=== PATIENT | male | born 1960 | race Caucasian/White ===

== ENCOUNTER → 2017-10-27 10:52 | Outpatient (CLI) | payer OTHER, MEDICAID, SELFPAY ==
--- NOTE | 2017-10-27 | DI.US.S_ITS ---
PROCEDURE: US ABDOMEN LIMITED INDICATIONS: CHRONIC HEPATITIS C WITHOUT HEPATIC COMA TECHNIQUE: Real-time focused scanning was performed of the abdomen, with image documentation. COMPARISON: [facility], MR, ABDOMEN W&WO CONTRAST, 06/05/2016, 17:03. FINDINGS: Liver is diffusely increased in echogenicity. No focal hepatic abnormalities identified. Normal hepatic size. IMPRESSION: Increased hepatic echogenicity noted possibly related to hepatic steatosis but other sources of hepatocellular disease cannot be excluded. Recommend clinical correlation. Dictated by: Darius RODNEY Interpreted: Hermila Hastings MD on 10/27/2017 at 13:03 Approved by: Hermila Hastings M.D. on 10/27/2017 at 15:05
== END ==
PROVIDERS: Family Provider Family Medicine; PCP Family Medicine; Visit Provider Internal Medicine Gastroenterology
DX: B18.2 Chronic viral hepatitis C (principal)
CPT/HCPCS: 76705

== ENCOUNTER 2017-11-21 12:46 | Emergency (ER) | payer OTHER, MEDICAID, SELFPAY ==
[2017-11-21 12:48] VITALS: BP 161/92; PULSE 69; RESP 17; TEMP 36.5; O2SAT 99; BMI 36.9
--- NOTE | 2017-11-21 12:51 | DI.RAD.S_ITS ---
PROCEDURE: XR CHEST 1V INDICATIONS: chest pain TECHNIQUE: One view of the chest was acquired. COMPARISON: [facility], , CHEST 2 VIEW, 10/29/2016, 9:49. FINDINGS: Surgical changes and devices: Median sternotomy. Lungs and pleura: No pleural effusions or pneumothorax. Lungs are clear. Mediastinum: Mediastinal contours appear normal. Heart size is normal. Bones and chest wall: No suspicious bony lesions. Overlying soft tissues appear unremarkable. IMPRESSION: No acute process. Dictated by: Candy Garcia M.D. on 11/21/2017 at 13:47 Approved by: Candy Garcia M.D. on 11/21/2017 at 13:47
[2017-11-21 13:19] LABS: Add Manual Diff / Slide Review NO; Basophils Percent Auto 0.1 % (0-2); Eosinophils Percent Auto 3.2 % (2-4); Hematocrit 44.7 % (41-53); Lymphocytes Percent Auto 14.5 % (25-40); Mean Corpuscular HGB Conc 35.8 % (30-36); Mean Corpuscular Volume 94.9 fL (80-100); Monocytes Percent Auto 8.7 % (3-14); Neutrophils Absolute Auto 7700 /uL (3000-5900); Neutrophils Percent Auto 73.5 % (50-75); Platelet Count 191 X10^3/uL (150-400); Red Blood Cell Count 4.72 X10^6/uL (4.5-5.9); Red Cell Distribution Width 13.3 % (11.6-14.8); White Blood Cell Count 10.5 X10^3/uL (4.5-11.0)
[2017-11-21 13:30] VITALS: BP 113/81; PULSE 67; RESP 24; O2SAT 95
[2017-11-21 13:44] LABS: Troponin I 0.107 ng/mL (0.01-0.034)
[2017-11-21] MEDS: ASPIRIN 81 MG TAB 324 MG PO (13:53)
[2017-11-21] MEDS: SODIUM CHLORIDE 0.9% 1,000 ML 150 ML IV (13:54)
[2017-11-21 14:30] VITALS: BP 109/68; PULSE 66; RESP 13; O2SAT 98
[2017-11-21 14:31] LABS: Alanine Aminotransferase 22 IU/L (21-72); Albumin 4.2 g/dL (3.5-5.0); Albumin Globulin Ratio 1.2 (1.0-2.8); Alkaline Phosphatase 68 U/L (38-126); Aspartate Aminotransferase 22 IU/L (17-59); BUN Creatinine Ratio 15.6 (6-22); Bilirubin Total 0.8 mg/dL (0.2-1.3); Blood Urea Nitrogen 14 mg/dL (9-20); Calcium 9.5 mg/dL (8.4-10.2); Carbon Dioxide 22 mmol/L (22-32); Chloride 104 mmol/L (98-107); Creatine Kinase 61 U/L (55-170); Estimated Glomerular Filt Rate > 60.0 mL/min (>60); Globulin 3.5 g/dL (1.7-4.1); Glucose 143 mg/dL (70-100); HEMOLYSIS < 15 (0-50); Potassium 4.2 mmol/L (3.4-5.1); Sodium 138 mmol/L (137-145); Total Protein 7.7 g/dL (6.3-8.2)
[2017-11-21 14:55] LABS: Lipase 662 U/L (23-300)
--- NOTE | 2017-11-21 15:39 | ED_ITS ---
HPI - Chest Pain General Chief Complaint: Chest Pain Stated Complaint: CHEST PAIN History of Present Illness HPI narrative: HPI 57-year-old obese male smoker with CAD (CABG two-vessel 2014, stent ?2 2012, stent ?3 2006) presents complaining of intermittent waxing and waning nitroglycerin responsive chest pain over the last 2-3 days is without clear provoking or relieving factors. Patient has not had similar symptoms for an extended period of time (months to years). Currently denies chest pain, shortness breath, or further symptoms. Patient takes multiple cardiac medications, unsure of names. Patient denies recent immobilization, leg trauma, estrogen use, surgery in the last four weeks, hemoptysis, or malignancy in the last 6 months. Associate Professor Of Archaeology Dr. Moyer. M/S/F/SocHx notable for: please see HPI; remainder reviewed with patient and in chart. ROS: Negative constitutional, eye, cardiovascular, pulmonary, GI, , MSK, skin , neurologic, psychiatric, endocrine unless noted in the HPI. Exam HR 67, BP 113/81, RR 24, SaO2 95% on room air; at 13:30. Gen: Pleasant, non-toxic appearing, resting comfortably. HEENT: NC, AT, PEERL, EOMI. Resp: diffuse extra wheezing throughout all lung edwards, normal work of breathing, otherwise clear to auscultation bilaterally. Card: RRR with no M/R/G, no crackles in lung bases, no pedal edema, no JVD appreciated. GI: NT/ND Vascular: Both ankles, calves, and thighs of equal size, no calf tenderness to palpation bilaterally. MSK: No chest wall TTP. No visible deformities, strength and tone WNL. Skin: Normal color with no visible lesions. Neuro: AO x 3, no facial asymmetry, vision and hearing WNL. Psych: Mood and affect appropriate. Labs / Imaging (pertinent): WBC 10.5, Hb 16.0, Na 138, K 4.2. Troponin 0.107 EKG (5:49 PM): SR 71 bpm, approximately 0.[address] elevation in lead III, nonspecific elevation in lead aVF, nonspecific elevation in lead II, 0.[address] depression V2 and V3. EKG (3:20 PM): SR 60 bpm, approximately 0.[address] elevation in lead III, nonspecific elevation in lead aVF, nonspecific elevation in lead II, 0.[address] depression V2, nonspecific depression in V3. CXR: No acute cardiopulmonary disease process. MDM Previous chart, nursing note, and vitals reviewed. A: 57-year-old obese male smoker with CAD (CABG two-vessel 2014, stent ?2 2012, stent ?3 2006) presents complaining of intermittent waxing and waning nitroglycerin responsive chest pain over the last 2-3 days is without clear provoking or relieving factors. DDx and Evaluation: * ACS -PATIENT WITH TROPONIN ELEVATION AND ECG CHANGES, SUSPECT NSTEMI. ASPIRIN GIVEN. * UA - HISTORY CONSISTENT WITH WORSENING UNSTABLE ANGINA. * Pericarditis - consider pericarditis unlikely given the lack of RI segment depressions as well as the absence of diffuse ST-segment elevations, lack of reduction of pain when supine, and lack of a friction rub. * Myocarditis - unlikely given the negative troponin and an EKG without characteristic RI-segment or ST-segment changes. * Dissection - dissection is unlikely given symptoms, and lack of mediastinal widening. * PE - low clinical suspicion given history and alternate diagnosis, further risk stratification (e.g.) Well's not indicated. * Mediastinal Air - no evidence by CXR or auscultation. * Pneumothorax - no evidence by CXR or physical exam. * MSK - doubt given lack of reproducibility on exam. * Endocarditis - no identifiable risk factors, patient afebrile, no new murmurs appreciated on exam; doubt. * GI (Esophageal rupture, GERD) - esophageal rupture effectively excluded given the lack of mediastinal widening, non-toxic appearance, and lack of identifiable risk factors. While not definitively excluded, further evaluation of GERD is deferred to an outpatient setting. ED Course: Vital signs remained stable and within clinically acceptable limits. Disposition: discussed patient with organizational development manager, Dr. Osuna, at [facility], recommend admission to hospitalist service. Patient accepted by Dr. Garza. Impression: NSTEMI (please reference below for remainder of encounter information) Critical Care Time Organ system(s): Cardiopulmonary Intervention: Assessment of the patient, interpretation of studies, communication related to patient care. Time: 30 minutes were spent directly related to patient care exclusive of separately billed procedures. Related Data Allergies Allergy/AdvReac Type Severity Reaction Status Date / Time No Known Drug Allergies Allergy Verified 11/21/17 12:48 [facility] Social History Smoking Status: Current every day smoker Exam Initial Vital Signs Initial Vital Signs: Vital Signs Temperature 97.7 F 11/21/17 12:48 Pulse Rate 69 11/21/17 12:48 Respiratory Rate 17 11/21/17 12:48 Blood Pressure 161/92 H 11/21/17 12:48 Pulse Oximetry 99 11/21/17 12:48 Course Orders Ordered: ED Orders 11/21/17 12:51 XR chest 1V Stat EKG-12 Lead Stat 11/21/17 13:05 Complete Blood Count AUTO DIFF Stat 11/21/17 14:12 Comprehensive Metabolic Panel Stat Lipase Stat Troponin & CK Cardiac Panel Stat Sodium Chloride (Normal Saline 0.9%) 1,000 mls @ 150 mls/hr IV CONT BETINA Last Admin: 11/21/17 13:54 Dose: 150 mls/hr Discontinued Medications Aspirin (Aspirin Chew) 324 mg PO NOW ONE Stop: 11/21/17 12:52 Last Admin: 11/21/17 13:53 Dose: 324 mg Vital Signs - 8 hr 11/21/17 12:48 11/21/17 13:30 11/21/17 14:30 Temperature 97.7 F Pulse Rate 69 67 66 Respiratory Rate 17 24 13 Blood Pressure 161/92 H Blood Pressure [Right Arm] 113/81 H 109/68 Pulse Oximetry 99 95 98 MDM - Chest Pain Lab Data Result diagrams: 11/21/17 13:05 11/21/17 14:12 Lab Results 11/21/17 11/21/17 Range/Units 13:05 14:12 WBC 10.5 (4.5-11.0) X10^3/uL RBC 4.72 (4.5-5.9) X10^6/uL Hgb 16.0 (13.5-17.5) g/dL Hct 44.7 (41-53) % MCV 94.9 (80-100) fL MCH 34.0 (26-34) PG MCHC 35.8 (30-36) % RDW 13.3 (11.6-14.8) % Plt Count 191 (150-400) X10^3/uL Neut % (Auto) 73.5 (50-75) % Lymph % (Auto) 14.5 L (25-40) % [place] % (Auto) 8.7 (3-14) % Eos % (Auto) 3.2 (2-4) % Baso % (Auto) 0.1 (0-2) % Neut # (Auto) 7700 H (0688-3295) /uL Sodium 138 (137-145) mmol/L Potassium 4.2 (3.4-5.1) mmol/L Chloride 104 (98-107) mmol/L Carbon Dioxide 22 (22-32) mmol/L BUN 14 (9-20) mg/dL Creatinine 0.90 (0.66-1.25) mg/dL Estimated GFR > 60.0 (>60) mL/min BUN/Creatinine Ratio 15.6 (6-22) Glucose 143 H (70-100) mg/dL Calcium 9.5 (8.4-10.2) mg/dL Total Bilirubin 0.8 (0.2-1.3) mg/dL AST 22 (17-59) IU/L ALT 22 (21-72) IU/L Alkaline Phosphatase 68 (38-126) U/L Total Creatine Kinase 61 (55-170) U/L Troponin I 0.107 H (0.01-0.034) ng/mL Total Protein 7.7 (6.3-8.2) g/dL Albumin 4.2 (3.5-5.0) g/dL Globulin 3.5 (1.7-4.1) g/dL Albumin/Globulin Ratio 1.2 (1.0-2.8) Lipase 662 H (23-300) U/L
[2017-11-21 16:35] VITALS: BP 124/74; PULSE 72; RESP 18; O2SAT 97
[2017-11-21 17:34] LABS: Bacteria Urine None Seen
[2017-11-21 17:36] VITALS: BP 136/84; PULSE 68; RESP 20; O2SAT 96
[2017-11-21 17:43] LABS: Troponin I 0.179 ng/mL (0.01-0.034)
[2017-11-21 17:57] LABS: RBC Urine 0-1/HPF (0-5/HPF); WBC Urine 0-1/HPF (0-5/HPF)
[2017-11-21 17:58] LABS: Mucus Urine 2+ (Negative)
== END 2017-11-21 17:30 | disposition short-term general hospital (02) ==
PROVIDERS: Emergency Provider Emergency Medicine; PCP Family Medicine
DX: I21.4 Non-ST elevation (NSTEMI) myocardial infarction (principal)
CPT/HCPCS: 36415; 36591; 71045; 80053; 81003; 81015; 82550; 82553; 83690; 84484; 85025; 93005; 93010; 96360; 96361; 99283; 99285

== ENCOUNTER → 2018-04-02 14:07 | Outpatient (CLI) | payer OTHER, MEDICAID, SELFPAY ==
--- NOTE | 2018-04-02 | DI.MRI.S_ITS ---
PROCEDURE: MR ANKLE RT WO CON INDICATIONS: Right ankle pain in whole joint TECHNIQUE: Noncontrast sagittal T1 spin echo and T2 fast spin echo with fat saturation, axial proton density fast spin echo and T2 fast spin echo with fat saturation, coronal T1 spin echo and T2 fast spin echo with fat saturation through the ankle/hindfoot. COMPARISON: None. FINDINGS: Image quality: Excellent. Bones and joints: Severe tibiotalar joint osteophyte is is seen with complete loss of joint space, extensive subchondral sclerosis, cyst formation and edema. Prominent anterior dorsal margin osteophyte formation is also seen. Edema involving weight-bearing portion of talar dome is also noted, a small osteochondral lesion cannot be excluded. There is suggestion of intraosseous osteonecrosis involving distal tibial shaft. Mild to moderate osteoarthritic changes throughout subtalar joint, midfoot and hindfoot joints are also seen. No acute fracture or dislocation. Medial structures: The posterior tibialis, flexor digitorum longus, and flexor hallucis longus tendons are intact. The posterior tibial neurovascular bundle appears normal within the tarsal tunnel, without extrinsic mass effect. The deep layer (anterior and posterior tibiotalar ligaments) and superficial layer (tibionavicular, tibiospring, and tibiocalcaneal ligaments) of the deltoid ligament appear normal. The spring ligament components (superomedial calcaneonavicular, medioplantar oblique calcaneonavicular, and inferoplantar longitudinal ligaments) are intact. Lateral structures: The anterior talofibular, calcaneofibular, and posterior talofibular ligaments appear intact. More superiorly, the anterior and posterior tibiofibular ligaments appear thickened with heterogeneous internal fluid signal suggestive of sprain and low to moderate grade intrasubstance partial-thickness tear. The tibiofibular syndesmosis is normal in width at 2 mm or less. The peroneus longus and brevis tendons demonstrate normal location and morphology. Adjacent bony peroneal tubercle and retrotrochlear prominence are normal in size. The sinus tarsi demonstrates normal fatty signal, without edema, fibrosis, or cyst formation. Visualized sinus tarsi components (cervical ligament, interosseous talocalcaneal ligament, roots of the inferior extensor retinaculum) appear normal. The calcaneonavicular and calcaneocuboid components of the bifurcate ligament appear intact. The dorsal calcaneocuboid ligament appears intact. Anterior structures: The tibialis anterior, extensor hallucis longus, and extensor digitorum longus tendons appear intact. The dorsal talonavicular ligament appears intact. Posterior and plantar structures: Achilles tendon is intact. Medial and lateral bands of the plantar fascia are of normal thickness. No abductor digiti quinti muscle atrophy to suggest Chairez neuropathy. IMPRESSION: 1. Severe tibiotalar joint osteoarthritis as described above. Cannot rule out small osteochondral lesion in the weight-bearing portion of talar dome. Prominent anterior and marginal osteophyte formation. Small focal area of osteonecrosis involving distal tibia shaft medullary space. Mild to moderate osteophytic changes in rest of the ankle, hindfoot and midfoot joints. No fracture or dislocation. 2. Suggestion of sprain and low to moderate grade intrasubstance partial-thickness tear involving anterior and possibly posterior tibiofibular ligaments. Other medial and lateral ankle ligaments are grossly intact. Ankle tendons are grossly intact. Dictated by: Ottoniel Kamara M.D. on 04/02/2018 at 16:21 Approved by: Ottoniel Kamara M.D. on 04/02/2018 at 16:30
== END ==
PROVIDERS: PCP Family Medicine; Visit Provider Family Medicine
DX: M79.606 Pain in leg, unspecified (principal)
CPT/HCPCS: 73721

== ENCOUNTER → 2018-05-26 11:01 | Outpatient (CLI) | payer OTHER, MEDICAID, SELFPAY ==
--- NOTE | 2018-05-26 | DI.US.S_ITS ---
PROCEDURE: US ABDOMEN LIMITED INDICATIONS: CIRRHOSIS TECHNIQUE: Real-time focused scanning was performed of the abdomen, with image documentation. COMPARISON: [facility], US, US ABDOMEN LIMITED, 10/27/2017, 11:13. [facility], US, ABDOMEN LIMITED, 12/23/2016, 11:02. FINDINGS: The hepatic margin is nodular, no hepatic mass lesion is seen. IMPRESSION: Limited study at clinician request, no sign of interval development of ascites or varices adjacent to the liver in this patient with imaging findings suggestive of underlying cirrhosis. No mass lesion found. Dictated by: Noel Vann M.D. on 05/26/2018 at 14:03 Approved by: Noel Vann M.D. on 05/26/2018 at 14:04
== END ==
PROVIDERS: PCP Family Medicine; Visit Provider Internal Medicine Gastroenterology
DX: K74.60 Unspecified cirrhosis of liver (principal)
CPT/HCPCS: 76705

== ENCOUNTER → 2019-01-10 08:28 | Outpatient (CLI) | payer MEDICARE, MEDICAID, SELFPAY ==
--- NOTE | 2019-01-10 | DI.US.S_ITS ---
PROCEDURE: US ABDOMEN LIMITED INDICATIONS: HEP C TECHNIQUE: Real-time focused scanning was performed of the abdomen, with image documentation. COMPARISON: [facility], MR, ABDOMEN W&WO CONTRAST, 06/05/2016, 17:03. [facility], US, US ABDOMEN LIMITED, 05/26/2018, 11:14. FINDINGS: No findings of gallstones or sludge are seen. The gallbladder wall is thickened, measuring 5 mm. No specific pericholecystic fluid is seen. The sonographic Marie sign is negative. The liver demonstrates normal size. The liver demonstrates generalized increased mildly echogenicity. This decreases ultrasound sensitivity for detection of hepatic masses. There is no biliary dilatation, the common bile duct measures 4 mm. The pancreas is not well-seen. The right kidney is unremarkable. IMPRESSION: The liver demonstrates increased echogenicity. This finding is nonspecific, yet differential diagnoses include cirrhosis and fatty infiltration. No focal liver lesions are seen. If there is strong clinical concern for a liver mass, then please consider a followup dedicated liver protocol MRI (without and with contrast) for further evaluation (assuming that there is no contraindication). Gallbladder wall thickening, without additional sonographic signs of cholecystitis. Dictated by: Kamaljit Nicole M.D. on 01/10/2019 at 11:59 Approved by: Kamaljit Nicole M.D. on 01/10/2019 at 12:02
== END ==
PROVIDERS: PCP Family Medicine; Visit Provider Internal Medicine Gastroenterology
DX: R76.8 Other specified abnormal immunological findings in serum (principal)
CPT/HCPCS: 76705

== ENCOUNTER 2019-05-05 15:27 | Observation (INO) | payer MEDICARE, MEDICAID, SELFPAY ==
[2019-05-05] VITALS (10 sets, daily range): BP systolic 98–152; BP diastolic 54–76; PULSE 59–65; RESP 16–26; TEMP 36.3–36.6; O2SAT 96–100; BMI 37.5
--- NOTE | 2019-05-05 15:38 | DI.RAD.S_ITS ---
PROCEDURE: XR CHEST 1V INDICATIONS: chest pain TECHNIQUE: One view of the chest was acquired. COMPARISON: [facility], , XR CHEST 1V, 11/21/2017, 13:32. [facility], CR, CHEST 2 VIEW, 10/29/2016, 9:49. FINDINGS: Surgical changes and devices: Sternotomy wires, presumed prior CABG. Lungs and pleura: Lungs are clear. No pleural effusions or pneumothorax. Mediastinum: Mediastinal contours appear normal. Heart size is normal. Bones and chest wall: No suspicious bony lesions. Overlying soft tissues appear unremarkable. IMPRESSION: Prior CABG, no source of chest pain seen. Dictated by: Noel Vann M.D. on 05/05/2019 at 16:02 Approved by: Noel Vann M.D. on 05/05/2019 at 16:02
[2019-05-05 16:16] LABS: Add Manual Diff / Slide Review NO; Basophils Absolute Auto 100 /uL (0-100); Basophils Percent Auto 1.1 % (0-2); Eosinophils Absolute Auto 300 /uL (0-450); Hematocrit 37.8 % (41-53); Hemoglobin 13.4 g/dL (13.5-17.5); Lymphocytes Absolute Auto 1200 /uL (1100-4500); Lymphocytes Percent Auto 17.4 % (25-40); Mean Corpuscular HGB Conc 35.4 % (30-36); Mean Corpuscular Hemoglobin 33.9 PG (26-34); Mean Corpuscular Volume 95.7 fL (80-100); Monocytes Absolute Auto 700 /uL (0-900); Monocytes Percent Auto 9.6 % (3-14); Neutrophils Absolute Auto 4700 /uL (1500-7000); Neutrophils Percent Auto 67.9 % (50-75); Platelet Count 163 X10^3/uL (150-400); Red Blood Cell Count 3.95 X10^6/uL (4.5-5.9); Red Cell Distribution Width 13.3 % (11.6-14.8)
[2019-05-05 16:18] LABS: INR 1.1 (0.9-1.3); Prothrombin Time 12.4 SECONDS (10.1-12.7)
[2019-05-05 16:21] LABS: PTT Partial Thromboplastin Tim 31 SECONDS (26.4-36.2)
[2019-05-05 16:23] LABS: Alanine Aminotransferase 13 IU/L (<50); Albumin 4.3 g/dL (3.5-5.0); Albumin Globulin Ratio 1.2 (1.0-2.8); Alkaline Phosphatase 54 U/L (38-126); Aspartate Aminotransferase 20 IU/L (17-59); Bilirubin Total 0.5 mg/dL (0.2-1.3); Blood Urea Nitrogen 17 mg/dL (9-20); Calcium 9.5 mg/dL (8.4-10.2); Carbon Dioxide 23 mmol/L (22-32); Chloride 104 mmol/L (98-107); Creatine Kinase 50 U/L (55-170); Estimated Glomerular Filt Rate > 60.0 mL/min (>60); Globulin 3.7 g/dL (1.7-4.1); Glucose 130 mg/dL (70-100); HEMOLYSIS 20 (0-50); Lipase 40 U/L (23-300); Potassium 4.3 mmol/L (3.4-5.1); Sodium 137 mmol/L (137-145)
[2019-05-05 16:34] LABS: Troponin I < 0.012 ng/mL (0.01-0.034)
--- NOTE | 2019-05-05 18:03 | ED.CHESTPAIN ---
HPI - Chest Pain General Chief Complaint: Chest Pain Stated Complaint: severe chest pain last couple of days Time Seen by Provider: 05/05/19 18:03 Source: patient and family Mode of arrival: Ambulatory Limitations: no limitations History of Present Illness HPI narrative: This is a 59-year-old male who comes to the emergency department with complaint of chest pain that occurred on Thursday, 2 days prior. Patient states he was just pattern around the house. He states he had sort of epigastric low chest pain that was centralized did not radiate. He felt very sweaty he got nauseated felt lightheaded and a little bit short of breath. He took 3 nitro sublingual and his chest pain resolved over about 5-10 minutes. He states occasionally he has little twinges in his chest but these have been going on for several years. Since then he has occasionally had a little tightness or felt a little fatigued. He has not had any swelling. He has had a history of 5 cardiac stents total, his most recent catheterization was in 2009 when he was transferred from [facility] for an NSTEMI and he states that they cleaned out his arteries but did not place any new stents. Patient has not had any catheterization since that time. He did have an echo 3 months ago. He states that he was told his EF improved about 10% to 55%. He has not had any new medication changes. He takes Plavix daily but does not take aspirin. He has diabetes, hypertension, dyslipidemia and is on ProAir. He takes Januvia, pioglitazone, metformin, enalapril, metoprolol, last is all and isosorbide daily. Patient did contact his Cardiology office today and they asked that patient come to the ER for evaluation. Dr. Fung is his parts interpreter. Related Data Home Medications Medication Instructions Recorded Confirmed albuterol sulfate [ProAir HFA] 1 puff INHALATION BID 05/05/19 05/05/19 cilostazol 50 mg PO BID 05/05/19 05/05/19 clopidogrel 75 mg PO DAILY 05/05/19 05/05/19 enalapril maleate 2.5 mg PO BID 05/05/19 05/05/19 hydrocodone-acetaminophen 1 tab PO Q6-8H PRN 05/05/19 05/05/19 isosorbide mononitrate 30 mg PO DAILY 05/05/19 05/05/19 magnesium oxide 400 mg PO BID 05/05/19 metoprolol succinate 50 mg PO BID 05/05/19 pioglitazone 30 mg PO DAILY 05/05/19 rosuvastatin 10 mg PO DAILY 05/05/19 05/05/19 sitagliptin [Januvia] 100 mg PO DAILY 05/05/19 05/05/19 Allergies Allergy/AdvReac Type Severity Reaction Status Date / Time No Known Drug Allergies Allergy Verified 05/05/19 15:40 Review of Systems Review of Systems ROS Unobtainable: All systems reviewed & are unremarkable except as noted in HPI and below Patient History Medical History (Updated 05/05/19 @ 18:41 by Bren Gonzáles DO) Current smoker (Acute) Diabetes (Acute) Dyslipidemia (Acute) Hypertension (Acute) Surgical History (Updated 05/05/19 @ 22:52 by SHANTELLE Sibley) H/O heart artery stent (Acute) History of ankle surgery (Acute) History of colonoscopy (Acute) History of coronary artery bypass graft (Acute) Family History (Updated 05/05/19 @ 22:44 by SHANTELLE Sibley) Father Heart disease Myocardial infarction Mother Heart disease Brother Diabetes mellitus Social History household members: significant other Smoking Status: Current every day smoker alcohol intake: never Smoking Status: Current every day smoker tobacco type: cigarettes alcohol intake frequency: holidays/special occasions only Substance Use Type: does not use Exam Narrative Exam Narrative: GENERAL: Alert and oriented x three, obese, well-appearing male in mild distress. HEENT: Head normocephalic, atraumatic, EOMI, pupils reactive, face symmetric, moist mucous membranes NECK: Supple, full range of motion CARDIOVASCULAR: Regular rate and rhythm without murmurs, rubs or gallops. RESPIRATORY: Breath sounds equal bilaterally, no wheezes rales or rhonchi. ABDOMEN: Soft, nontender. Normoactive bowel sounds all 4 quadrants. No guarding or rebound, rigidity, no mass : No CVA tenderness EXTREMITIES: Normal range of motion, no clubbing or edema. Neurovascularly intact NEUROLOGICAL: Cranial nerves II through XII grossly intact. Moving all extremities SKIN: Warm, dry, no petechiae, no rashes or lesions. Initial Vital Signs Initial Vital Signs: Vital Signs Temperature 98 F 05/05/19 15:38 Pulse Rate 64 05/05/19 15:38 Respiratory Rate 18 05/05/19 15:38 Blood Pressure 148/71 H 05/05/19 15:38 Pulse Oximetry 100 05/05/19 15:38 Course Orders Ordered: ED Orders 05/05/19 20:55 EC echo doppler complete Urgent 05/06/19 05:05 Basic Metabolic Panel Routine Complete Blood Count AUTO DIFF Routine Troponin I Routine Acetaminophen (Tylenol) 650 mg PO Q6HR PRN PRN Reason: Fever/Mild Pain (1-3) Hydrocodone Bitart/Acetaminophen ([place] 5/325) 1 tab PO Q6HR PRN PRN Reason: Pain, Moderate (4-6) Albuterol (Ventolin Hfa) 2 puff INH RTQ4HR PRN PRN Reason: Shortness Of Breath Or Wheezing Albuterol (Ventolin) 2.5 mg INH [id number] PRN PRN Reason: Shortness Of Breath Or Wheezing Albuterol/Ipratropium (Duoneb) 3 ml INH RTBID PRN PRN Reason: Shortness Of Breath Or Wheezing Bisacodyl (Dulcolax) 10 mg PO DAILY PRN PRN Reason: Constipation Cilostazol (Pletal) 50 mg PO BID [facility] Clopidogrel Bisulfate (Plavix) 75 mg PO DAILY [facility] Dextrose (D50w) 25 gm IV PRN PRN; Protocol PRN Reason: Hypoglycemia Docusate Sodium (Colace) 100 mg PO BID PRN PRN Reason: Constipation Enalapril Maleate (Vasotec) 2.5 mg PO BID [facility] Last Admin: 05/06/19 00:31 Dose: 2.5 mg Documented by: BALDEMARUSH Heparin Sodium (Porcine) (Heparin) 5,000 unit SUBCUT BID [facility] Last Admin: 05/05/19 22:23 Dose: 5,000 unit Documented by: [email or web address] Sodium Chloride (Normal Saline 0.9%) 1,000 mls @ 100 mls/hr IV CONT [facility] Last Admin: 05/05/19 22:15 Dose: 100 mls/hr Documented by: [email or web address] Insulin Aspart (Novolog Flexpen) 0 unit SUBCUT ACHS [facility]; Protocol Isosorbide Mononitrate (Imdur) 30 mg PO DAILY [facility] Metoprolol Succinate (Toprol Xl) 50 mg PO BID [facility] Last Admin: 05/05/19 22:53 Dose: 50 mg Documented by: ALEJANDRO Morphine Sulfate (Morphine) 2 mg IV Q5MIN PRN PRN Reason: Chest Pain Naloxone HCl (Narcan) 0.2 mg IV Q2MIN PRN PRN Reason: Opiate Reversal Nitroglycerin (Nitrostat) 0.4 mg SL [id number] PRN PRN Reason: Chest Pain Rosuvastatin Calcium (Crestor) 10 mg PO DAILY [facility] Sitagliptin Phosphate (Januvia) 100 mg PO DAILY [facility] Discontinued Medications Influenza Virus Vaccine (Flu Vaccine) 0.5 ml IM .ONCE ONE Stop: 05/05/19 22:30 Last Admin: 05/06/19 00:31 Dose: 0.5 ml Documented by: KEHINDE Nicotine (Nicoderm) 21 mg TOP NOW ONE Stop: 05/05/19 19:56 Last Admin: 05/05/19 22:24 Dose: 21 mg Documented by: HWERENETTA Nicotine (Nicoderm) 21 mg TOP DAILY [facility] Non-Formulary Medication (Hydrocodone-Acetaminophen) 1 tab PO Q6HR [facility] Vital Signs Vital signs: Vital Signs - 8 hr 05/05/19 15:38 05/05/19 16:00 05/05/19 17:14 Temperature 98 F Pulse Rate 64 63 63 Respiratory Rate 18 18 22 Blood Pressure 148/71 H Blood Pressure [Left Arm] 120/60 101/59 L Pulse Oximetry 100 98 96 05/05/19 17:15 Temperature Pulse Rate 62 Respiratory Rate 22 Blood Pressure Blood Pressure [Left Arm] 98/61 Pulse Oximetry 96 MDM - Chest Pain Lab Data Attestation: I reviewed the patient's lab results. Result diagrams: 05/05/19 16:00 05/05/19 16:00 Labs: Lab Results 05/05/19 05/05/19 05/05/19 Range/Units 16:00 16:00 16:00 WBC 7.0 (4.5-11.0) X10^3/uL RBC 3.95 L (4.5-5.9) X10^6/uL Hgb 13.4 L (13.5-17.5) g/dL Hct 37.8 L (41-53) % MCV 95.7 (80-100) fL MCH 33.9 (26-34) PG MCHC 35.4 (30-36) % RDW 13.3 (11.6-14.8) % Plt Count 163 (150-400) X10^3/uL Neut % (Auto) 67.9 (50-75) % Lymph % (Auto) 17.4 L (25-40) % [place] % (Auto) 9.6 (3-14) % Eos % (Auto) 4.0 (2-4) % Baso % (Auto) 1.1 (0-2) % Neut # (Auto) 4700 (4788-5976) /uL Lymph # (Auto) 1200 (7157-3396) /uL [place] # (Auto) 700 (0-900) /uL Eos # (Auto) 300 (0-450) /uL Baso # (Auto) 100 (0-100) /uL PT 12.4 (10.1-12.7) SECONDS INR 1.1 (0.9-1.3) APTT 31 (26.4-36.2) SECONDS Sodium 137 (137-145) mmol/L Potassium 4.3 (3.4-5.1) mmol/L Chloride 104 (98-107) mmol/L Carbon Dioxide 23 (22-32) mmol/L BUN 17 (9-20) mg/dL Creatinine 1.00 (0.66-1.25) mg/dL Estimated GFR > 60.0 (>60) mL/min BUN/Creatinine Ratio 17.0 (6-22) Glucose 130 H (70-100) mg/dL Calcium 9.5 (8.4-10.2) mg/dL Magnesium (1.6-2.3) mg/dL Total Bilirubin 0.5 (0.2-1.3) mg/dL AST 20 (17-59) IU/L ALT 13 (<50) IU/L Alkaline Phosphatase 54 (38-126) U/L Total Creatine Kinase 50 L (55-170) U/L CK-MB (CK-2) TNP CK-MB (CK-2) Rel Index TNP Troponin I < 0.012 (0.01-0.034) ng/mL Total Protein 8.0 (6.3-8.2) g/dL Albumin 4.3 (3.5-5.0) g/dL Globulin 3.7 (1.7-4.1) g/dL Albumin/Globulin Ratio 1.2 (1.0-2.8) Lipase 40 (23-300) U/L 05/05/19 05/05/19 Range/Units 20:06 20:06 WBC (4.5-11.0) X10^3/uL RBC (4.5-5.9) X10^6/uL Hgb (13.5-17.5) g/dL Hct (41-53) % MCV (80-100) fL MCH (26-34) PG MCHC (30-36) % RDW (11.6-14.8) % Plt Count (150-400) X10^3/uL Neut % (Auto) (50-75) % Lymph % (Auto) (25-40) % [place] % (Auto) (3-14) % Eos % (Auto) (2-4) % Baso % (Auto) (0-2) % Neut # (Auto) (6884-1382) /uL Lymph # (Auto) (6419-3169) /uL [place] # (Auto) (0-900) /uL Eos # (Auto) (0-450) /uL Baso # (Auto) (0-100) /uL PT (10.1-12.7) SECONDS INR (0.9-1.3) APTT (26.4-36.2) SECONDS Sodium (137-145) mmol/L Potassium (3.4-5.1) mmol/L Chloride (98-107) mmol/L Carbon Dioxide (22-32) mmol/L BUN (9-20) mg/dL Creatinine (0.66-1.25) mg/dL Estimated GFR (>60) mL/min BUN/Creatinine Ratio (6-22) Glucose (70-100) mg/dL Calcium (8.4-10.2) mg/dL Magnesium 2.1 (1.6-2.3) mg/dL Total Bilirubin (0.2-1.3) mg/dL AST (17-59) IU/L ALT (<50) IU/L Alkaline Phosphatase (38-126) U/L Total Creatine Kinase 47 L (55-170) U/L CK-MB (CK-2) TNP CK-MB (CK-2) Rel Index TNP Troponin I < 0.012 (0.01-0.034) ng/mL Total Protein (6.3-8.2) g/dL Albumin (3.5-5.0) g/dL Globulin (1.7-4.1) g/dL Albumin/Globulin Ratio (1.0-2.8) Lipase (23-300) U/L Imaging Data Chest x-ray: Radiologist's Impression: [address] [address] XRay Report Signed Patient: Macho Trevino RMR#: [id number] : 1Acct:[id number] Age/Sex: 59 / MDate of Service: 05/05/19 Loc: ED Accession Number: [id number] Procedure: XR chest 1V Ordering Provider: Omid Velez MD PROCEDURE: XR CHEST 1V INDICATIONS: chest pain TECHNIQUE: One view of the chest was acquired. COMPARISON: [facility], CR, XR CHEST 1V, 11/21/2017, 13:32. [facility], CR, CHEST 2 VIEW, 10/29/2016, 9:49. FINDINGS: Surgical changes and devices: Sternotomy wires, presumed prior CABG. Lungs and pleura: Lungs are clear. No pleural effusions or pneumothorax. Mediastinum: Mediastinal contours appear normal. Heart size is normal. Bones and chest wall: No suspicious bony lesions. Overlying soft tissues appear unremarkable. IMPRESSION: Prior CABG, no source of chest pain seen. Dictated by: Noel Vann M.D. on 05/05/2019 at 16:02 Approved by: Noel Vann M.D. on 05/05/2019 at 16:02 ECG Data Attestation: I personally reviewed and interpreted this ECG as follows: Interpretation: Sinus rhythm rate of 62 TN 179 QRS of 116 QTC of 400. No ST elevation. Q-waves in 1 and 2. MDM Narrative Medical decision making narrative: Spoke with Dr. Osuna he recommends serial troponins overnight observation. Does not feel patient needs to, today there are any troponin changes or new changes with the patient is chest pain to recontact cardiology. Patient if he is doing well can follow up with them and they will set him up for further evaluation. Spoke with PRODUCT MARKETING ANALYST De Cohen, he accepts for observation but request repeat troponin for risk stratification prior to going to floor. If trop is elevating would ask that we recontact cardiology. Repeat EKG and trop are negative. Patient admitted for observation, patient continues to be chest pain free. Discharge Plan Departure Patient Disposition: Admitted as Observation Clinical Impression: Chest pain Discharge Date/Time: 05/05/19 21:21 Referrals: Pavan Aguilar MD [Primary Care Provider] - Admit Date/Time: 05/05/19 20:56 Admit Provider: Catrachito Cohen
[2019-05-05 20:23] LABS: Creatine Kinase 47 U/L (55-170)
[2019-05-05 20:35] LABS: Troponin I < 0.012 ng/mL (0.01-0.034)
--- NOTE | 2019-05-05 21:05 | P.HP_ITS ---
History of Present Illness History of Present Illness Date Patient Seen: 05/05/19 Time Patient Seen: 21:05 Chief complaint: severe chest pain last couple of days Narrative: Mr. Macho Trevino is a 59-year-old male with history significant for current smoker, hypertension, hyperlipidemia, diabetes type 2 and coronary artery disease with a history multiple MIs with stents times and bypass surgery who presents to the ER for evaluation at the direction of his robotics software engineer. The patient reports having significant episode chest pain 2 days described as substernal nonradiating associate diaphoresis, nausea and shortness of breath. The patient self-treated home with 3 nitroglycerin with resolution of his chest pain and associated symptoms. However, since that time reports feeling more fatigued and lacking of energy. The patient also reports difficul ty keeping warm. He denies having fevers, no nasal congestion or sore throat. He has a chronic cough related to his smoking but denies wheezing or shortness of breath at rest or exertional. Has no complaints of abdominal pain denies heartburn, nausea vomiting except for the aforementioned episode. Reports having regular bowel movements that are on the softer side occasional blood with a history of hemorrhoids. He has no difficulty urinating. He is independent his ADLs and ambulatory without assistive devices. Upon arrival to the ER the patient was afebrile with temperature 90?, heart rate 64, blood pressure of 148/71, respirations 18 saturating 100% air. Twelve lead EKG was obtained jaundice sinus rhythm a ventricular rate of 62 with no kathy ectopy, no ST or T-wave changes, Q-waves consistent with old infarct inferiorly. Chest x-ray is obtained which notes previous sternotomy but no acute cardiopulmonary pathology. Laboratories are obtained finding white count of 7.0, hemoglobin of 13.4, hematocrit of 37.8 and platelets of 163. Coagulation reveals a PT of 12.4, INR 1.1 and a PTT of 31. His electrolytes are within normal limits a potassium 4 3 and magnesium 2.0, BUN is 17 with a creatinine 1.0. His nonfasting glucose is 130. He has a total CK of 50 and a negative tr oponin is 0.012. Requested a 2nd troponin which was also negative at less than 0.012. The patient is admitted to medicine service for further cardiac workup and monitoring. Patient History Medical History (Updated 05/05/19 @ 18:41 by Bren Gonzáles DO) Current smoker (Acute) Diabetes (Acute) Dyslipidemia (Acute) Hypertension (Acute) Surgical History (Updated 05/05/19 @ 22:52 by SHANTELLE Sibley) H/O heart artery stent (Acute) History of ankle surgery (Acute) History of colonoscopy (Acute) History of coronary artery bypass graft (Acute) Family & Social History Family History (Updated 05/05/19 @ 22:44 by SHANTELLE Sibley) Father Heart disease Myocardial infarction Mother Heart disease Brother Diabetes mellitus Safety & Behavioral: Feels Safe in Current Yes Environment Been Physically Hurt or No Threatened By a Person Tobacco & Substance use: Smoking Status Current every day smoker alcohol intake frequency holiday/special occasion Substance Use Type does not use Comment: The patient is but currently lives in a single family home with his significant other. He reports an extensive family history of cardiovascular disease with his father passing with the young age from [place], his mother passing away from heart disease and his father having 12 siblings of which only 3 lived to be older than 50 related to heart disease. He has 3 children currently living in [place]. Occupation: Unemployed Smoking: Patient is a current smoker, smokes approximately 1/2 pack per day. Alcohol: Patient reports drinking alcohol on holidays Substance use: Patient does use cannabis to 3 times per week. Advanced directives: The patient has no formal advanced directive but states his desire to be FULL CODE. He designates his significant other Lisbet Cook to be his surrogate decision maker. Meds Home Medications and Allergies Home Medications Medication Instructions Recorded Confirmed Type albuterol sulfate [ProAir HFA] 1 puff INHALATION BID 05/05/19 05/05/19 History cilostazol 50 mg PO BID 05/05/19 05/05/19 History clopidogrel 75 mg PO DAILY 05/05/19 05/05/19 History enalapril maleate 2.5 mg PO BID 05/05/19 05/05/19 History hydrocodone-acetaminophen 1 tab PO Q6-8H PRN 05/05/19 05/05/19 History isosorbide mononitrate 30 mg PO DAILY 05/05/19 05/05/19 History magnesium oxide 400 mg PO BID 05/05/19 History metoprolol succinate 50 mg PO BID 05/05/19 History pioglitazone 30 mg PO DAILY 05/05/19 History rosuvastatin 10 mg PO DAILY 05/05/19 05/05/19 History sitagliptin [Januvia] 100 mg PO DAILY 05/05/19 05/05/19 History Allergies Allergy/AdvReac Type Severity Reaction Status Date / Time No Known Drug Allergies Allergy Verified 05/05/19 15:40 Review of Systems Review of Systems Narrative: All systems reviewed and found unremarkable under discussed in the HPI above. Exam Vital Signs (past 8 hours): - 05/05/19 15:38 05/05/19 16:00 05/05/19 17:14 Temperature 98 F Pulse Rate 64 63 63 Respiratory Rate 18 18 22 Blood Pressure 148/71 H Blood Pressure [Left Arm] 120/60 101/59 L Pulse Oximetry 100 98 96 05/05/19 17:15 05/05/19 17:30 05/05/19 18:30 Temperature Pulse Rate 62 59 L 60 Respiratory Rate 22 22 21 Blood Pressure Blood Pressure [Left Arm] 98/61 99/54 L 114/65 Pulse Oximetry 96 97 97 Oxygen Delivery Method Room Air Narrative Exam Narrative: GENERAL APPEARANCE: well developed, obese male, in no acute distress. HEENT: Normocephalic, PERRLA, conjunctiva clear, sclera anicteric EOMs intact without nystagmus, no sinus tenderness to percussion, no rhinorrhea, mucous membranes are moist and pink without lesions or exudate. NECK/THYROID: neck supple, no JVD, no carotid bruit, no thyromegaly, trachea midline. LYMPH NODES: no cervical or supraclavicular lymphadenopathy. SKIN: [place], warm and dry, no visible lesions, rashes, ulcerations or petechiae. HEART: regular rate and rhythm, S1-S2, no murmur, no rubs or gallops, brisk capillary refill, no edema LUNGS: Diminished but clear bilaterally, no coarseness crackles or wheezing, no cough present CHEST: Symmetrical movement, no accessory muscle use, good tidal volume. ABDOMEN: Somewhat firm, protuberant, no tenderness or guarding, no organomegaly, no flank tenderness, active bowel tones. BACK: Normal curvature, nontender to palpation, no CVA tenderness on percussion EXTREMITIES: moves all extremities, strength is 5/5 and symmetrical, pain la teral right ankle without deformity NEUROLOGIC: AAO x4, no focal neurologic deficits, sensation intact to light touch, hearing grossly normal to speech. PSYCH: cooperative, appropriate with stable behavior Objective Labs Result Diagrams: 05/05/19 16:00 05/05/19 16:00 Labs: Laboratory Results - last 24 hr 05/05/19 05/05/19 05/05/19 16:00 16:00 16:00 WBC 7.0 RBC 3.95 L Hgb 13.4 L Hct 37.8 L MCV 95.7 MCH 33.9 MCHC 35.4 RDW 13.3 Plt Count 163 Neut % (Auto) 67.9 Lymph % (Auto) 17.4 L [place] % (Auto) 9.6 Eos % (Auto) 4.0 Baso % (Auto) 1.1 Neut # (Auto) 4700 Lymph # (Auto) 1200 [place] # (Auto) 700 Eos # (Auto) 300 Baso # (Auto) 100 PT 12.4 INR 1.1 APTT 31 Sodium 137 Potassium 4.3 Chloride 104 Carbon Dioxide 23 BUN 17 Creatinine 1.00 Estimated GFR > 60.0 BUN/Creatinine Ratio 17.0 Glucose 130 H Calcium 9.5 Total Bilirubin 0.5 AST 20 ALT 13 Alkaline Phosphatase 54 Total Creatine Kinase 50 L CK-MB (CK-2) TNP CK-MB (CK-2) Rel Index TNP Troponin I < 0.012 Total Protein 8.0 Albumin 4.3 Globulin 3.7 Albumin/Globulin Ratio 1.2 Lipase 40 05/05/19 20:06 WBC RBC Hgb Hct MCV MCH MCHC RDW Plt Count Neut % (Auto) Lymph % (Auto) [place] % (Auto) Eos % (Auto) Baso % (Auto) Neut # (Auto) Lymph # (Auto) [place] # (Auto) Eos # (Auto) Baso # (Auto) PT INR APTT Sodium Potassium Chloride Carbon Dioxide BUN Creatinine Estimated GFR BUN/Creatinine Ratio Glucose Calcium Total Bilirubin AST ALT Alkaline Phosphatase Total Creatine Kinase 47 L CK-MB (CK-2) TNP CK-MB (CK-2) Rel Index TNP Troponin I < 0.012 Total Protein Albumin Globulin Albumin/Globulin Ratio Lipase Assessment & Plan Assessment & Plan narrative: This is a 59-year-old male patient with involved history of cardiovascular disease having multiple heart attacks, CABG and stents x5 no had no episode of chest pain 2 days ago relieved with 3 nitro but has not returned to baseline. Patient referred to the ER for further evaluation by his robotics software engineer. 1. Unstable angina, acute on chronic heart disease, present on admission, active -patient with onset of chest pain, unprovoked 2 days ago with associated nausea diaphoresis and shortness of breath. Pain relieved with 3 nitro. -extensive personal history of coronary disease with CABG and stents x5 as well as profound family history of cardiovascular disease. -the patient is since experienced increased fatigue and not feeling right prompting to calls robotics software engineer who sent him to the ER today. -12 lead EKG is sinus rhythm with a ventricular rate of 62 without block, ST or T-wave change, old inferior and old lateral [place]. -troponin x2 in the ER is less than 0.012. Chronic cough from smoking without leukocytosis or fever, chest x-ray without pulmonary edema or infiltrates. -patient reports echocardiogram done within the last 2-3 months at [facility] in [facility], will request medical records. Patient self reports EF improved 10% over prior exam. -continue clopidogrel 75 mg daily, cilsotazol 50 mg twice daily and isosorbide 30 mg daily. -patient with 2-troponins will obtain another troponin in the morning. Patient is on telemetry. -nuclear med stress test in the morning. 2. Diabetes type 2 without complications, present on admission, stable -admission nonfasting blood sugars 130. -will continue the patient's home regimen of sitagliptin 100 mg daily. -fingerstick blood sugar a.c. and HS, with correctional insulin low range 3. Essential hypertension, chronic, present on admission, active -patient with elevated blood pressure on arrival at 148/71 and later on the floor 150s over 70s. -will continue patient's home regimen of enalapril 2.5 mg twice daily and metoprolol 50 mg twice daily. -will monitor blood pressures and treat if necessary. 4. Hyperlipidemia, present on admission, stable -continue patient's home regimen of rosuvastatin 10 mg daily. 5. Current smoker, chronic, present on admission, active. -patient's current cigarette smoker approximately 1/2 pack per day. -patient likely has COPD but has not been diagnosed. He has been prescribed albuterol inhaler for daily use. -breath sounds are diminished but without coarseness crackles or wheezing. -respiratory therapy to consult, evaluate and treat. -albuterol inhaler 2 puffs every 4 hours as needed, respiratory therapy to provide teaching and spacer. -albuterol nebulizer 2.5 mg every 2 hours as needed -DuoNeb twice daily as needed. -teaching on smoking cessation related to current cardiac risks and lung disease, greater than 3 minutes less than 10. VTE prophylaxis: SCDs, Lovenox Diet: Medium consistent carbohydrate diet, NPO at midnight for stress test. IVF: Saline lock, normal saline 100 cc/hour at midnight. Patient is admitted to the hospital at the request of Cardiology for further cardiac evaluation, heart monitoring and serial lab testing. The patient is admitted as observation with expected length of stay to be less than 2 midnights. Scores GCS [place] coma scale eye opening: Spontaneous [place] coma scale verbal response: Orientated [place] coma scale motor response: Obey commands [place] coma scale total score: 15
[2019-05-05 21:12] LABS: Magnesium 2.1 mg/dL (1.6-2.3)
[2019-05-05] MEDS: SODIUM CHLORIDE 0.9% 1,000 ML 100 ML IV (22:15)
[2019-05-05] MEDS: HEPARIN 5,000 UNIT/ML VIAL 5000 UNIT SUBCUT (22:23)
[2019-05-05] MEDS: NICOTINE 21 MG PATCH TOP (22:24)
--- NOTE | 2019-05-05 22:46 | PC.NURSE ---
Admission from ER: Pt with two negative troponins. Denies chest pain upon admission. Ambulated to bed independently. Third to be drawn at 0500. NS@100cc/hr via 20g right hand. Denies chest pain currently. NSR on tele. PO Metoprolol scheduled. Stress test in the am. Pt refused treadmill- CLINICAL PROJECT ASSISTANT changing test to chemical for the am. Tolerating carb consistent diet. NPO at midnight. Blood glucose AC+HS with sliding scale ordered.
[2019-05-05] MEDS: METOPROLOL ER 50 MG TABLET PO (22:53)
[2019-05-06] VITALS (10 sets, daily range): BP systolic 102–130; BP diastolic 67–76; PULSE 41–69; RESP 16–38; TEMP 36.3–36.9; O2SAT 93–98
[2019-05-06] MEDS: INFLUENZA VACCINE 0.5 ML SYRINGE IM (00:31)
[2019-05-06] MEDS: ENALAPRIL 5 MG TABLET 2.5 MG PO ×2 (00:31→09:00)
[2019-05-06 05:52] LABS: Add Manual Diff / Slide Review NO; Basophils Absolute Auto 0 /uL (0-100); Basophils Percent Auto 0.7 % (0-2); Eosinophils Absolute Auto 200 /uL (0-450); Eosinophils Percent Auto 3.6 % (2-4); Hematocrit 38.4 % (41-53); Hemoglobin 13.3 g/dL (13.5-17.5); Lymphocytes Absolute Auto 1000 /uL (1100-4500); Lymphocytes Percent Auto 14.6 % (25-40); Mean Corpuscular HGB Conc 34.6 % (30-36); Mean Corpuscular Hemoglobin 33.4 PG (26-34); Mean Corpuscular Volume 96.6 fL (80-100); Monocytes Absolute Auto 500 /uL (0-900); Monocytes Percent Auto 8.4 % (3-14); Neutrophils Absolute Auto 4700 /uL (1500-7000); Neutrophils Percent Auto 72.7 % (50-75); Platelet Count 146 X10^3/uL (150-400); Red Blood Cell Count 3.97 X10^6/uL (4.5-5.9); Red Cell Distribution Width 13.4 % (11.6-14.8); White Blood Cell Count 6.5 X10^3/uL (4.5-11.0)
[2019-05-06 05:59] LABS: Blood Urea Nitrogen 16 mg/dL (9-20); Calcium 9.2 mg/dL (8.4-10.2); Carbon Dioxide 26 mmol/L (22-32); Chloride 105 mmol/L (98-107); Estimated Glomerular Filt Rate > 60.0 mL/min (>60); Glucose 108 mg/dL (70-100); HEMOLYSIS < 15 (0-50); Potassium 4.4 mmol/L (3.4-5.1); Sodium 138 mmol/L (137-145)
[2019-05-06 06:09] LABS: Troponin I < 0.012 ng/mL (0.01-0.034)
[2019-05-06 06:14] LABS: Hemoglobin A1C% w Est Avg Glu 5.5 % (4.0-6.0)
[2019-05-06] MEDS: CLOPIDOGREL 75 MG TABLET PO (08:59)
[2019-05-06] MEDS: cilostazoL 50 MG TABLET PO (08:59)
[2019-05-06] MEDS: SITAGLIPTIN 50 MG TABLET 100 MG PO (09:00)
[2019-05-06] MEDS: METOPROLOL ER 50 MG TABLET PO (09:00)
[2019-05-06] MEDS: HEPARIN 5,000 UNIT/ML VIAL 5000 UNIT SUBCUT (09:00)
[2019-05-06] MEDS: ISOSORBIDE MONONITRATE ER 30 MG TABLET PO (09:00)
[2019-05-06] MEDS: ROSUVASTATIN 10 MG TABLET PO (09:00)
--- NOTE | 2019-05-06 12:55 | PC.NURSE ---
Day Shift Note Alert and oriented x3. Denies any chest pain, denies shortness of breath. NSR on tele, HR in the 70s. NPO after breakfast for stress test - taken down for test at 1250.
--- NOTE | 2019-05-06 13:42 | CM.DANOTE ---
Discharge Planning/Care Management DCP: assessment: case received, EMR reviewed and discuss in Team Rounds. Dr. Machuca noted that a stress test would be done today. Pt was sent to by his position classification specialist. Went to room to meet with pt. He had just been taken off of the unit for the stress test. If this is ok Dr. Machuca noted he would likely send pt home today. Pt is a 59 year old male who admitted last night to care of hospitalist team. Payer: Medicare and Medicaid. PCP: Dr. Pavan Aguilar. Admission status: OBS: per UR SHARAD Mccracken. Pt is noted to have an extensive cardiac history and family history of same. DC dispo will revolve around the outcome of the stress test. DCP team will follow prn. ? home ? transfer to higher level of cardiac care. CM Discharge Assessment Start: 05/06/19 13:37 Freq: Status: Active Protocol: Document 05/06/19 13:39 ITV (Rec: 05/06/19 13:41 ITV [id number]) Discharge Planning Assessment Advance Directives? No History Provided By Medical Record Prior Living Arrangements Apartment/Condo Household Members significant other Comment Lisbet Marroquin: [phone] Is patient alert and oriented? Yes Review Status In Process
[2019-05-06] MEDS: INSULIN ASPART 100 UNIT/ML INSULN PEN SUBCUT (17:04)
--- NOTE | 2019-05-06 17:52 | P.DS_ITS ---
History of Present Illness History of Present Illness Chief complaint: severe chest pain last couple of days Narrative: Mr. Macho Trevino is a 59-year-old male with history significant for current smoker, hypertension, hyperlipidemia, diabetes type 2 and coronary artery disease with a history multiple MIs with stents times and bypass surgery who presents to the ER for evaluation at the direction of his power project manager. The patient reports having significant episode chest pain 2 days described as substernal nonradiating associate diaphoresis, nausea and shortness of breath. The patient self-treated home with 3 nitroglycerin with resolution of his chest pain and associated symptoms. However, since that time reports feeling more fatigued and lacking of energy. The patient also reports difficult y keeping warm. He denies having fevers, no nasal congestion or sore throat. He has a chronic cough related to his smoking but denies wheezing or shortness of breath at rest or exertional. Has no complaints of abdominal pain denies heartburn, nausea vomiting except for the aforementioned episode. Reports having regular bowel movements that are on the softer side occasional blood with a history of hemorrhoids. He has no difficulty urinating. He is independent his ADLs and ambulatory without assistive devices. Upon arrival to the ER the patient was afebrile with temperature 90?, heart rate 64, blood pressure of 148/71, respirations 18 saturating 100% air. Twelve lead EKG was obtained jaundice sinus rhythm a ventricular rate of 62 with no kathy ectopy, no ST or T-wave changes, Q-waves consistent with old infarct inferiorly. Chest x-ray is obtained which notes previous sternotomy but no acute cardiopulmonary pathology. Laboratories are obtained finding white count of 7.0, hemoglobin of 13.4, hematocrit of 37.8 and platelets of 163. Coagulation reveals a PT of 12.4, INR 1.1 and a PTT of 31. His electrolytes are within normal limits a potassium 4 3 and magnesium 2.0, BUN is 17 with a creatinine 1.0. His nonfasting glucose is 130. He has a total CK of 50 and a negative tro ponin is 0.012. Requested a 2nd troponin which was also negative at less than 0.012. The patient is admitted to medicine service for further cardiac workup and monitoring. Discharge Providers Provider Date of admission: 05/05/19 20:56 Discharge Date: 05/06/19 Primary care physician: Pavan Aguilar MD Consults: 05/05/19 20:47 Consult to Discharge Planning Routine Comment: Discharge provider: Jaylen Machuca MD Summary Hospital Course Discharge Diagnosis: 1. Chest pain 2. CAD Hospital Course: Patient has history of RI and 2 vessel CABG in 2014, and multiple stents prior to the CABG and came in at urging of his with complaints of severe persistent chest pain occurring a couple of days prior to admission. He had 3 serial negative cardiac enzymes and no acute changes on EKG or telemetry. He did not have recurrence of his chest pain. He was continued on his routine medications. He had pharmacological stress testing which showed inferior and inferolateral ischemia but we do not have prior record of myocardial perfusion stress testing for comparison. Due to serial negative cardiac enzymes and absence of acute changes on EKG or recurrent chest pain it was felt safe to discharge in home and have him return for resting imaging on Thursday. He will follow-up with his power project manager. He is instructed to return to the ER if he has recurrent chest pain. Patient does note he has chronic twinges of mild discomfort in his chest and he does not need to come in the ER if he has mild symptoms that are his baseline type of chest pain. Status at Discharge Cognitive/behavioral status at discharge: oriented Functional status at discharge: independent ambulation Overall status at discharge: patient is back to baseline Exam Vital Signs (past 8 hours): - 05/06/19 11:00 05/06/19 11:05 05/06/19 12:00 Temperature 97.4 F L Pulse Rate 64 Respiratory Rate 16 Blood Pressure 126/76 Pulse Oximetry 97 96 97 05/06/19 16:02 Temperature 98.5 F Pulse Rate 69 Respiratory Rate 20 Blood Pressure 112/67 Pulse Oximetry 97 Oxygen Delivery Method Nasal Cannula Oxygen Flow Rate 2 Objective Labs Result Diagrams: 05/06/19 05:05 05/06/19 05:05 Labs: Laboratory Results - last 24 hr 05/05/19 05/05/19 05/06/19 20:06 20:06 05:05 WBC 6.5 RBC 3.97 L Hgb 13.3 L Hct 38.4 L MCV 96.6 MCH 33.4 MCHC 34.6 RDW 13.4 Plt Count 146 L Neut % (Auto) 72.7 Lymph % (Auto) 14.6 L Stone % (Auto) 8.4 Eos % (Auto) 3.6 Baso % (Auto) 0.7 Neut # (Auto) 4700 Lymph # (Auto) 1000 L Stone # (Auto) 500 Eos # (Auto) 200 Baso # (Auto) 0 Sodium Potassium Chloride Carbon Dioxide BUN Creatinine Estimated GFR BUN/Creatinine Ratio Glucose Hemoglobin A1c Calcium Magnesium 2.1 Total Creatine Kinase 47 L CK-MB (CK-2) TNP CK-MB (CK-2) Rel Index TNP Troponin I < 0.012 05/06/19 05/06/19 05:05 05:05 WBC RBC Hgb Hct MCV MCH MCHC RDW Plt Count Neut % (Auto) Lymph % (Auto) Stone % (Auto) Eos % (Auto) Baso % (Auto) Neut # (Auto) Lymph # (Auto) Stone # (Auto) Eos # (Auto) Baso # (Auto) Sodium 138 Potassium 4.4 Chloride 105 Carbon Dioxide 26 BUN 16 Creatinine 1.00 Estimated GFR > 60.0 BUN/Creatinine Ratio 16.0 Glucose 108 H Hemoglobin A1c 5.5 Calcium 9.2 Magnesium Total Creatine Kinase CK-MB (CK-2) CK-MB (CK-2) Rel Index Troponin I < 0.012 Discharge Plan Discharge Plan Patient Disposition: Home Discharge comment: You were admitted for chest pain of possible cardiac origin. Return for your resting scan on Thursday and follow up with your power project manager to review stress test results. Discharge orders & Medications Prescriptions: Continued cilostazol 50 mg tablet 50 mg PO BID RF: 0 metoprolol succinate 50 mg tablet extended release 24 hr 50 mg PO BID RF: 0 isosorbide mononitrate 30 mg tablet extended release 24 hr 30 mg PO DAILY RF: 0 enalapril maleate 2.5 mg tablet 2.5 mg PO BID RF: 0 clopidogrel 75 mg tablet 75 mg PO DAILY RF: 0 magnesium oxide 400 mg (241.3 mg magnesium) tablet 400 mg PO BID RF: 0 hydrocodone-acetaminophen 7.5-325 mg tablet 1 tab PO Q6-8H PRN (Reason: pain) RF: 0 albuterol sulfate [ProAir HFA] 90 mcg/actuation HFA aerosol inhaler 1 puff INHALATION BID RF: 0 pioglitazone 30 mg tablet 30 mg PO DAILY RF: 0 rosuvastatin 10 mg tablet 10 mg PO DAILY RF: 0 Januvia 100 mg tablet 100 mg PO DAILY RF: 0 Follow up/Referrals: Pavan Aguilar MD [Primary Care Provider] - Diet/Activity/Treatments Diet: Diet as Tolerated Discharge Data Primary Care Provider: Pavan Aguilar Attending Provider: Catrachito Cohen Admit Date/Time: 05/05/19 20:56 Quality VTE Deep Vein Thrombosis/Pulmonary Embolism Present on Admission: No
--- NOTE | 2019-05-06 18:04 | PC.NURSE ---
1800- Patient dischargedd to home. Instruction given to patient and significant other. Patient verbalized understanding of plan to return Thursday for second part of his stress test. Patient advised to return to the hospital if he has chest discomfort. IV discontinued, telemetry discontinued. Insulin sliding scale given prior to dinner and discharge to home. Patient stable at the time of discharge.
--- NOTE | 2019-05-09 13:51 | DI.NM.S_ITS ---
DATE OF SERVICE: PROCEDURE: Exercise perfusion study. INDICATIONS: Chest pain with known history of multiple DE, bypass surgery, PCI, hypertension, hyperlipidemia. RADIOPHARMACEUTICAL: 25.0 millicurie technetium-99m Myoview intravenous was injected at stress and 24.6 millicurie technetium-99m Myoview intravenous was injected at rest. CARDIAC STRESS: The patient underwent intravenous Lexiscan perfusion study under the supervision of an attending staff using standard intravenous Lexiscan protocol. The patient remained hemodynamically stable. No significant chest pain. Baseline EKG revealed sinus rhythm with Q-waves in inferior leads suggestive of old inferior wall DE. During stress, no convincing ischemic changes. Intermittent PVCs without any ventricular tachycardia. RAW DATA: There is increased subdiaphragmatic activity. Patient's weight is 246 pounds. GATED STUDY: Stress LV ejection fraction reported to be 72%, which does not appears to be true. Resting end-diastolic volume 110 mL. TID ratio is 0.82, which is within normal limits. Lung heart ratio is 0.47, which is abnormal. There is decreased uptake in the inferior wall. MYOCARDIAL PERFUSION SCAN: Stress supine, resting supine and stress prone images were compared to each other. It appears to be that patient has large size severe perfusion defect of inferior wall and inferolateral wall as well as inferior apex consistent with old dominant right coronary artery infarction. No significant reversible ischemia. CONCLUSION: This is an abnormal myocardial perfusion study consistent with large infarction involving inferior wall, inferior apex, inferior lateral wall without any reversible ischemia. The computer calculated stress LV ejection fraction 72% does not appears to be true. Consider 2D echo for true assessment of LV function. Lung heart ratio 0.47, which is abnormal. Wesleymikayla Macho - GLASS CALIBRATOR/hoda/cs doc#: [id number]/job#: [id number] dd: 05/09/2019 12:56:00 dt: 05/09/2019 13:43:00 DICTATING MD/COPIES TO: Arabella Canales MD; Pavan Aguilar MD COPIES MNE: ANN;
== END 2019-05-06 18:00 | disposition home or self-care (01) ==
LOC: ED 20:27 → ICU 05-06 07:13 → AC 05-06 13:54 → ICU 05-06 13:54
PROVIDERS: Emergency Medicine; Admitting Provider Nurse Practitioner Adult Health; Emergency Provider Emergency Medicine; PCP Family Medicine; Referring Provider Internal Medicine Interventional Cardiology; Visit Provider Nurse Practitioner Adult Health
DX: R07.9 Chest pain, unspecified (principal); Z23 Encounter for immunization; F17.210 Nicotine dependence, cigarettes, uncomplicated; E11.9 Type 2 diabetes mellitus without complications; E78.5 Hyperlipidemia, unspecified; I10 Essential (primary) hypertension; Z79.4 Long term (current) use of insulin; I25.10 Atherosclerotic heart disease of native coronary artery without angina pectoris; Z95.1 Presence of aortocoronary bypass graft
CPT/HCPCS: 36415; 71045; 78452; 80048; 80053; 82550; 82962; 83036; 83690; 83735; 84484; 85025; 85610; 85730; 90471; 90656; 93005; 93017; 94762; 96360; 96361; 96372; 99284; 99285; G0378; A9502; J1644; J2785; Q2038

== ENCOUNTER → 2020-07-03 09:01 | Outpatient (CLI) | payer MEDICARE, MEDICAID, SELFPAY ==
[2019-05-05 22:23] VITALS: BMI 37.5
--- NOTE | 2020-07-03 09:03 | DI.US.S_ITS ---
PROCEDURE: US ABDOMEN LIMITED INDICATIONS: Abnormal levels of other serum enzymes TECHNIQUE: Real-time focused scanning was performed of the abdomen, with image documentation. COMPARISON: [facility], , US ABDOMEN LIMITED, 01/10/2019, 9:02. [facility], , US ABDOMEN LIMITED, 05/26/2018, 11:14. FINDINGS: The liver is enlarged in craniocaudad height measuring 21.5 cm. There is diffuse fatty infiltrative appearance of the liver parenchyma, without an identified focal liver mass lesion. No intrahepatic biliary distension found. The gallbladder appears free of calculus or wall thickening. The pancreas is poorly visualized due to overlying bowel gas and hepatic echotexture. The common duct measures 4 mm, normal. IMPRESSION: Limited right abdominal ultrasound, showing hepatomegaly and fatty infiltration within the liver without an identified mass lesion. Suspect superimposed cirrhosis. No ascites found. Dictated by: Noel Vann M.D. on 07/03/2020 at 10:50 Approved by: Noel Vann M.D. on 07/03/2020 at 10:52
== END ==
PROVIDERS: PCP Family Medicine; Referring Provider Internal Medicine Gastroenterology; Visit Provider Internal Medicine Gastroenterology
DX: R74.8 Abnormal levels of other serum enzymes (principal); K76.0 Fatty (change of) liver, not elsewhere classified
CPT/HCPCS: 76705

== ENCOUNTER → 2023-09-16 10:04 | Outpatient (CLI) | payer MEDICARE, MEDICAID, SELFPAY ==
[2019-05-05 22:23] VITALS: BMI 37.5
--- NOTE | 2023-09-16 10:06 | DI.US.S_ITS ---
PROCEDURE: US ABDOMEN LIMITED INDICATIONS: Abnormal levels of other serum enzymes TECHNIQUE: Real-time scanning was performed of the abdominal and retroperitoneal organs, with image documentation. COMPARISON: [facility], US, US ABDOMEN LIMITED, 07/03/2020, 9:07. FINDINGS: Liver: Mildly increased echogenicity . No solid mass.. Gallbladder: No gallstones. No wall thickening. No pericholecystic edema. Negative sonographic Marie's sign. Biliary ducts: Intrahepatic bile ducts are non-dilated. Extrahepatic bile duct caliber measures 4 mm. Normal is 6-7 mm or less in diameter, or 10 mm or less post-cholecystectomy. Pancreas: Not visualized due to overlying bowel gas. Miscellaneous: No free abdominal fluid. IMPRESSION: Increased liver echogenicity, commonly caused by hepatic steatosis. Dictated by: Matthew Waddell M.D. on 09/16/2023 at 12:12 Approved by: Matthew Waddell M.D. on 09/16/2023 at 12:13
== END ==
LOC: US 10:04
PROVIDERS: PCP Family Medicine; Referring Provider Internal Medicine Gastroenterology; Visit Provider Internal Medicine Gastroenterology
DX: B17.10 Acute hepatitis C without hepatic coma (principal); R74.8 Abnormal levels of other serum enzymes
CPT/HCPCS: 76705

== ENCOUNTER 2024-12-07 12:54 | Day surgery (SDC) | payer MEDICARE, MEDICAID, SELFPAY ==
[2019-05-05 22:23] VITALS: BMI 37.5
--- NOTE | 2024-12-07 | PATH_ITS ---
[facility] Accession Number: [id number] No. of containers..04 Tissue . 01 Material submitted: . PART A: small bowel - SMALL BOWEL PART B: stomach - STOMACH PART C: colon - COLON PART D: body - POLYP 30CM . 01 Clinical history: . A) R/O CELIAC B) R/O MICROSCOPIC COLITIS . 01 Diagnosis: A. SMALL BOWEL, BIOPSY: Duodenal mucosa with no diagnostic abnormality. Negative for active inflammation, features of sprue, dysplasia, or malignancy. . B. STOMACH, BIOPSY: Acute erosive gastritis. Negative for Helicobacter organisms by immunohistochemistry. Negative for intestinal metaplasia. Negative for dysplasia or malignancy. . C. COLON, BIOPSY: Colonic mucosa with no diagnostic abnormality. Negative for active, chronic, and microscopic colitis. Negative for dysplasia and malignancy. . D. COLON POLYP AT 30 CM: Tubular adenoma. [facility] 12/20/2024 1602 Local . 01 Electronically signed: . Uziel Hernandez MD, PhD, Pathologist NPI- [id number] . 01 Gross description: . A. Received in formalin with two identifiers and small bowel, are two soft samson tissue fragments measuring 0.2 to 0.4 cm in greatest dimension. Entirely submitted in cassette A1. B. Received in formalin with two identifiers and stomach biopsy, are two soft samson tissue fragments ranging from 0.3 to 0.4 cm in greatest dimension. Entirely submitted in cassette B1. C. Received in formalin with two identifiers and colon biopsy, are four soft samson tissue fragments ranging from 0.2 to 0.4 cm in greatest dimension. Entirely submitted in cassette C1. D. Received in formalin with two identifiers and polyp 30 cm, is a samson polyp measuring 0.8 x 0.5 x 0.4 cm. Inked blue, bisected, and submitted entirely in cassette D1. (AER:[id number]) /[facility] 12/17/2024 2114 Local . 01 Microscopic: . B. An immunohistochemical stain was performed to evaluate for Helicobacter organisms and is negative. The control stain showed appropriate reactivity. . * This test was developed and the performance characteristics were validated by [employer]. It has not been cleared or approved by the U.S. Food and Drug Administration. . 01 Pathologist provided ICD-10: K29.70, R19.4, D12.6 . 01 CPT . 357237, 681099, 275111, 494841, [id number] Specimen Comment: A courtesy copy of this report has been sent to [phone] Performed at: [address] [id number] MD Octavio Henao MD Phone: [phone]
[2024-12-07 13:12] VITALS: BP 145/69; PULSE 65; RESP 98; TEMP 36.2; O2SAT 17
[2024-12-07] MEDS: LACTATED RINGERS 1,000 ML 42 ML IV (13:31)
--- NOTE | 2024-12-07 13:52 | P.OP.EGD&C_ITS ---
Operative Date/Time/Diagnoses Date of procedure: 12/07/24 Time of procedure: 14:37 Pre-op diagnosis: Anemia Post-op diagnosis: same Procedure & Clinicians Study performed: EGD and colonoscopy Same procedure(s) as scheduled: Yes Indications: Mild anemia with need for follow-up colonoscopy Surgeon: Bere Linton Anesthesia Type: Other Procedure Notes Procedure in detail: After informed consent was obtained the patient was placed in left lateral decubitus position. The video upper scope was placed into the oropharynx and with the patient's help swallowed into the esophagus. The esophagus stomach and duodenal were carefully examined. On withdrawal, retroflexed view the GE junction was performed. The scope was removed. The patient tolerated procedure well. The patient was then turned to the colonoscope substituted. The scope was passed into the rectum and easily towards the cecum. On slow withdrawal mucosa was carefully examined. The scope was removed. The patient tolerated procedure well. Blood loss none Complications none Sedation mac Findings EGD 1. Normal esophagus 2. Hematin flecks throughout the stomach with overall erythema. In addition a 2 by 0.5 cm ulceration was seen in the greater curvature biopsies were taken. There were also some punctate erosions in the distal stomach. 3. Normal duodenal bulb and sweep biopsies taken to rule out celiac Colonoscopy One. 1.6 cm polyp at 30 cm hot snared and removed completely 2. Somewhat patchy erythema throughout the colon biopsies taken to rule out microscopic colitis 3. Otherwise negative colonoscopy to cecum Will be in touch regarding biopsy results. I fully expect that the combined use of Plavix and aspirin are causing his bleeding issues in his stomach. 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 Likewise, the large polyp in his sigmoid maybe the cause of some blood loss anemia.
--- NOTE | 2024-12-07 13:52 | PM.PREOP ---
Pre-operative Note COVID-19 COVID-19 status: Not tested Interval Note History & Physical reviewed/Exam performed by Physician: Yes Changes to H&P: No ASA Class (for procedural sedation): III
[2024-12-07 14:38] VITALS: BP 132/64; PULSE 61; RESP 14; O2SAT 94
[2024-12-07 14:43] VITALS: BP 134/78; PULSE 62; RESP 16; O2SAT 94
[2024-12-07 14:48] VITALS: BP 129/94; PULSE 51; RESP 16; O2SAT 95
[2024-12-07 14:53] VITALS: BP 131/71; PULSE 52; RESP 16; O2SAT 95
[2024-12-07 14:54] VITALS: BP 129/88; PULSE 52; RESP 16; TEMP 36.2; O2SAT 98
== END 2024-12-07 15:20 | disposition home or self-care (01) ==
PROVIDERS: PCP Family Medicine; Referring Provider Internal Medicine Gastroenterology; Visit Provider Internal Medicine Gastroenterology
PROC: 0DJ08ZZ Inspection of Upper Intestinal Tract, Via Natural or Artificial Opening Endoscopic (ICD-10-PCS; CPT 45385; principal; 2024-12-07 14:00)
PROC: 0DJD8ZZ Inspection of Lower Intestinal Tract, Via Natural or Artificial Opening Endoscopic (ICD-10-PCS; CPT 45378; 2024-12-07 14:00)
DX: D50.0 Iron deficiency anemia secondary to blood loss (chronic) (principal); I10 Essential (primary) hypertension; E78.5 Hyperlipidemia, unspecified; E11.9 Type 2 diabetes mellitus without complications; F17.200 Nicotine dependence, unspecified, uncomplicated; J44.9 Chronic obstructive pulmonary disease, unspecified; I25.10 Atherosclerotic heart disease of native coronary artery without angina pectoris; Z95.1 Presence of aortocoronary bypass graft; Z95.5 Presence of coronary angioplasty implant and graft; Z79.84 Long term (current) use of oral hypoglycemic drugs; Z79.02 Long term (current) use of antithrombotics/antiplatelets; Z79.82 Long term (current) use of aspirin; D12.6 Benign neoplasm of colon, unspecified
CPT/HCPCS: 45385; 45380; 82962; J2704